=== PATIENT | female | born 1995 | race Caucasian/White ===

== ENCOUNTER → 2020-07-17 10:26 | Outpatient (CLI) | payer OTHER, SELFPAY ==
--- NOTE | 2020-07-17 10:30 | DI.US.S_ITS ---
PROCEDURE: US OB <= 14 WEEKS FETUS INDICATIONS: Early dating viability OUTSIDE/PRIOR DATING DATA: Last menstrual period (LMP): Unknown LMP-based estimated date of delivery (LIU): Not applicable. First dating scan (date and location): July 17, 2020. Estimated date of delivery (LIU) from first dating scan: March 10, 2021. TECHNIQUE: Real-time scanning was performed of the fetus and maternal pelvic organs, with image documentation. Endovaginal scanning was also performed to better visualize the fetus and maternal ovaries. COMPARISON: None. FINDINGS: Embryo: Single living intrauterine gestation with an estimated sonographic gestational age of approximately 6 weeks and 2 days based off crown-rump length measurement of approximately 0.5 cm. heart rate measures approximately 122 beats per minute. Normal yolk sac is visualized. No perigestational hemorrhage. Measurement variability in dating: +/- 4 weeks by LMP, +/- 7 days by mean sac diameter (use before 6 weeks gestation if crown-rump length not able to be measured), +/- 5 days by crown-rump length (up to 8 weeks 6 days gestation), +/- 7 days by crown-rump length (up to 13 weeks 6 days gestation). Maternal organs: Ovaries appear unremarkable bilaterally with resolving 1.7 cm left corpus luteal cyst. Maternal cervix measures 4.5 cm. It appears long and closed. IMPRESSION: Single living intrauterine gestation with an estimated sonographic gestational age of approximately 6 weeks and 2 days based off crown-rump length measurement of 0.5 cm. Recommend continued clinical surveillance and follow-up imaging with routine second-trimester anatomic screening survey. Dictated by: Shady Jackson M.D. on 07/20/2020 at 13:20 Approved by: Shady Jackson M.D. on 07/20/2020 at 13:23
== END ==
PROVIDERS: PCP Family Medicine; Referring Provider Family Medicine; Visit Provider Family Medicine
DX: Z34.01 Encounter for supervision of normal first pregnancy, first trimester (principal); Z3A.01 Less than 8 weeks gestation of pregnancy
CPT/HCPCS: 76817

== ENCOUNTER → 2020-07-21 14:01 | Outpatient (CLI) | payer OTHER, SELFPAY ==
[2020-07-21 15:37] LABS: HCG Quantitative /Beta subunit 47599 mIU/mL
== END ==
PROVIDERS: PCP Family Medicine; Referring Provider Family Medicine; Visit Provider Family Medicine
DX: Z34.90 Encounter for supervision of normal pregnancy, unspecified, unspecified trimester (principal)
CPT/HCPCS: 36415; 84702

== ENCOUNTER → 2020-07-24 08:35 | Outpatient (CLI) | payer OTHER, SELFPAY ==
[2020-07-24 11:25] LABS: HCG Quantitative /Beta subunit 66259 mIU/mL
== END ==
PROVIDERS: PCP Family Medicine; Referring Provider Family Medicine; Visit Provider Family Medicine
DX: Z34.90 Encounter for supervision of normal pregnancy, unspecified, unspecified trimester (principal)
CPT/HCPCS: 36415; 84702

== ENCOUNTER → 2020-08-09 14:43 | Outpatient (CLI) | payer OTHER, SELFPAY ==
--- NOTE | 2020-08-09 14:43 | DI.US.S_ITS ---
PROCEDURE: US OB <= 14 WEEKS FETUS INDICATIONS: 1 EPISODE BLEEDING OUTSIDE/PRIOR DATING DATA: Last menstrual period (LMP): Unknown LMP-based estimated date of delivery (LIU): Unknown. First dating scan (date and location): 07/17/20. Estimated date of delivery (LIU) from first dating scan: 03/10/21. TECHNIQUE: Real-time scanning was performed of the fetus and maternal pelvic organs, with image documentation. Endovaginal scanning was also performed to better visualize the fetus and maternal ovaries. COMPARISON: [facility], OB <= 14 WEEKS FETUS, 07/17/2020, 10:13. FINDINGS: Embryo: Single living intrauterine fetus is present with a heart rate measuring 153 beats per minute. [place]-rump length measures 3.2 cm, 10 weeks 1 day. There is 1.6 x 0.7 x 1.8 cm perigestational fluid collection, presumed hemorrhage. Measurement variability in dating: +/- 4 weeks by LMP, +/- 7 days by mean sac diameter (use before 6 weeks gestation if crown-rump length not able to be measured), +/- 5 days by crown-rump length (up to 8 weeks 6 days gestation), +/- 7 days by crown-rump length (up to 13 weeks 6 days gestation). Maternal organs: Ovaries are not well seen sonographically. . IMPRESSION: Single living intrauterine fetus. Perigestational hemorrhage. Dictated by: Al Zimmer M.D. on 08/09/2020 at 15:54 Approved by: Al Zimmer M.D. on 08/09/2020 at 15:56
== END ==
PROVIDERS: PCP Family Medicine; Referring Provider Family Medicine; Visit Provider Family Medicine
DX: Z34.01 Encounter for supervision of normal first pregnancy, first trimester (principal); Z3A.10 10 weeks gestation of pregnancy
CPT/HCPCS: 76801; 76817

== ENCOUNTER → 2020-08-18 10:17 | Outpatient (CLI) | payer OTHER, SELFPAY ==
[2020-08-18 10:57] LABS: Add Manual Diff / Slide Review NO; Basophils Absolute Auto 100 /uL (0-100); Basophils Percent Auto 0.9 % (0-2); Eosinophils Absolute Auto 200 /uL (0-450); Eosinophils Percent Auto 2.3 % (2-4); Hematocrit 37.4 % (36-46); Hemoglobin 12.7 g/dL (12.0-16.0); Lymphocytes Absolute Auto 2400 /uL (1100-4500); Lymphocytes Percent Auto 28.5 % (25-40); Mean Corpuscular HGB Conc 33.9 % (30-36); Mean Corpuscular Hemoglobin 29.6 PG (26-34); Mean Corpuscular Volume 87.2 fL (80-100); Monocytes Absolute Auto 600 /uL (0-900); Monocytes Percent Auto 6.6 % (3-14); Neutrophils Absolute Auto 5200 /uL (1500-7000); Neutrophils Percent Auto 61.7 % (50-75); Platelet Count 333 X10^3/uL (150-400); Red Blood Cell Count 4.29 X10^6/uL (4.0-5.2); Red Cell Distribution Width 13.8 % (11.6-14.8); White Blood Cell Count 8.5 X10^3/uL (4.5-11.0)
[2020-08-18 13:11] LABS: Appearance Urine UA CLEAR; Bilirubin Urine UA NEGATIVE (NEGATIVE); Color Urine UA YELLOW; Glucose Urine UA NEGATIVE (Negative); Ketones Urine UA TRACE (NEGATIVE); Leukocyte Esterase Urine UA TRACE (NEGATIVE); Nitrite Urine UA NEGATIVE (Negative); Occult Blood Urine UA TRACE-INTACT (Negative); Protein Urine UA NEGATIVE (Negative); Specific Gravity Urine UA 1.025 (1.000-1.035); Urobilinogen Urine UA 0.2 E.U./dL (0.2)
[2020-08-18 13:27] LABS: RBC Urine 0-1/HPF (0-5/HPF); Squamous Epithelial Cell Urine 5-10 /HPF (0-5/HPF); WBC Urine 0-1/HPF (0-5/HPF)
[2020-08-18 13:28] LABS: Bacteria Urine Few (2-10); Culture Indicated Urine Cult Not Indicated
[2020-08-18 16:15] LABS: Hepatitis B Surface Antigen NEGATIVE s/c (NEGATIVE); Rubella Antibody IgG 78.8 IU/mL (>15)
[2020-08-18 16:31] LABS: HIV 1 & 2 Ab/Ag 4th Gen Combo NEGATIVE (NEGATIVE); Hep C Virus Ab w/Reflex Quant NEGATIVE s/c (NEGATIVE)
[2020-08-19 07:52] LABS: RPR Screen Non Reactive (Non Reactive)
[2020-08-19 08:14] LABS: Varicella IgG Antibody >4000 index (Immune >165)
== END ==
PROVIDERS: PCP Family Medicine; Referring Provider Family Medicine; Visit Provider Family Medicine
DX: Z34.01 Encounter for supervision of normal first pregnancy, first trimester (principal)
CPT/HCPCS: 36415; 80055; 81003; 81015; 86787; 86803; 86850; 86900; 86901; 87086; 87389

== ENCOUNTER → 2020-10-02 16:34 | Outpatient (CLI) | payer OTHER, SELFPAY ==
[2020-10-04 20:07] LABS: AFP, Serum 48.7 ng/mL (.); Calc Gestational Age EDD (.); Estriol, Free 1.04 ng/mL (.); Inhibin A, Dimeric 84.99 pg/mL (.); Inhibin A, MoM 0.74 (.); Maternal Ethnicity Caucasian (.); Maternal Weight 254 lbs (.); Number of Fetuses No (.); OSBR Risk 1 IN 1995 (.); Results Report (.); Test Results *Screen Negative* (.); hCG, MoM 1.12 (.); hCG, Serum 25039 mIU/mL (.)
== END ==
PROVIDERS: PCP Family Medicine; Referring Provider Family Medicine; Visit Provider Family Medicine
DX: Z34.90 Encounter for supervision of normal pregnancy, unspecified, unspecified trimester (principal); Z3A.18 18 weeks gestation of pregnancy
CPT/HCPCS: 36415; 82105; 82677; 84702; 86336

== ENCOUNTER → 2020-10-23 09:17 | Outpatient (CLI) | payer OTHER, SELFPAY ==
--- NOTE | 2020-10-23 09:18 | DI.US.S_ITS ---
PROCEDURE: US OB >= 14 WEEKS FETUS INDICATIONS: ANATOMY OUTSIDE/PRIOR DATING DATA: First dating scan (date and location): 07/17/2020 . Estimated date of delivery (LIU) from first dating scan: 03/10/2021 . TECHNIQUE: Real-time scanning was performed of the fetus, with image documentation and biometric measurements. Endovaginal scanning: No COMPARISON: [facility], OB <= 14 WEEKS FETUS, 08/09/2020, 15:03. FINDINGS: General: A single living intrauterine gestation is present. Presentation: Vertex. Placenta: Placental position is posterior , without previa. Amniotic fluid index: 17.8 cm, normal range is 5-24 cm. heart rate: 157 beats per minute. Maternal cervical canal: 3.7 cm long. Normal lower limit is 2.5 cm. biometrics: Biparietal diameter: 21 weeks 4 days Head circumference: 21 weeks 1 day Abdominal circumference: 21 weeks 3 days Femur length: 22 weeks Estimated gestational age from initial scan: 20 weeks 2 days Composite gestational age from present scan: 21 weeks 4 days Estimated weight and percentile: 441 g; 98th percentile Measurement variability for biometric dating: +/- 7 days from 14 weeks to 15 weeks 6 days gestation, +/- 10 days from 16 weeks to 21 weeks 6 days gestation, +/- 2 weeks from 22 weeks to 27 weeks 6 days gestation, +/- 3 weeks for 28 weeks gestation or later. weight reference: 4500 g or EFW >90/95% is considered macrosomia or large for gestational age. EFW <10% is small for gestational age. EFW 5% or less is considered intra-uterine growth restriction. Anatomic survey: Neuro: Ventricles are non-dilated at less than 10 mm. Cisterna magna is normal at 3-11 mm. Cerebellum is normal in size and morphology. Nuchal skin fold: Normal at less than 6 mm between 14-21 weeks gestational age. Face: Nose and lips are normal. Facial profile not well seen. Spine: No evidence for spina bifida. Heart: Not well seen. Diaphragm: Diaphragm is intact. Stomach: Left-sided stomach is present. Kidneys: No hydronephrosis. Normal is less than 5 mm in 2nd trimester, less than 7 mm in 3rd trimester. Cord: 3-vessel cord has orthotopic insertion. Bladder: Normal in size. Extremities: All 4 extremities identified. IMPRESSION: Facial profile and heart not well visualized; otherwise normal anatomy. Follow-up recommended. Dictated by: Mike THOMASON Interpreted: Alfredo Landry MD on 10/23/2020 at 11:24 Transcribed by: SALBADOR on 10/23/2020 at 11:26 Approved by: Alfredo Landry M.D. on 10/23/2020 at 15:41
== END ==
PROVIDERS: PCP Family Medicine; Referring Provider Family Medicine; Visit Provider Family Medicine
DX: Z36.89 Encounter for other specified antenatal screening (principal); Z3A.21 21 weeks gestation of pregnancy
CPT/HCPCS: 76811

== ENCOUNTER → 2020-11-08 08:12 | Outpatient (CLI) | payer OTHER, SELFPAY ==
--- NOTE | 2020-11-08 08:13 | DI.US.S_ITS ---
PROCEDURE: US OB LIMITED INDICATIONS: HEART, PROFILE OUTSIDE/PRIOR DATING DATA: Last menstrual period (LMP): Unknown LMP-based estimated date of delivery (LIU): Not applicable . First dating scan (date and location): 07/17/2020 . Estimated date of delivery (LIU) from first dating scan: 03/10/2021 . TECHNIQUE: Real-time scanning was performed of the fetus, with image documentation. Endovaginal scanning: No COMPARISON: [facility], OB >= 14 WEEKS FETUS, 10/23/2020, 9:28. FINDINGS: A single living intrauterine gestation is present. Presentation: Transverse with head to maternal left Placenta: Placental position is posterior , without previa. heart rate: 153 beats per minute. Maternal cervical canal: 4.0 cm long. Normal lower limit is 2.5 cm. Estimated gestational age from initial scan: 22 weeks 4 day . profile is within normal limits. A 3 mm diameter left ventricular echogenic intracardiac focus is present. Outflow tracts are within normal limits. Four-chamber heart view is within normal limits. IMPRESSION: 1. Single living intrauterine gestation. 2. Left ventricular echogenic intracardiac focus. Otherwise negative evaluation of the heart and outflow tracts. 3. Normal profile. Dictated by: Chai Mendoza M.D. on 11/08/2020 at 10:25 Approved by: Chai Mendoza M.D. on 11/08/2020 at 10:27
== END ==
PROVIDERS: PCP Family Medicine; Referring Provider Family Medicine; Visit Provider Family Medicine
DX: Z36.89 Encounter for other specified antenatal screening (principal); Z3A.22 22 weeks gestation of pregnancy
CPT/HCPCS: 76815

== ENCOUNTER → 2020-11-28 08:44 | Outpatient (CLI) | payer OTHER, SELFPAY ==
[2020-11-28 10:37] LABS: Hematocrit 35.4 % (36-46); Hemoglobin 11.8 g/dL (12.0-16.0)
[2020-11-28 11:07] LABS: GTT (PREG) 1 Hour PP 50gm Dose 123 mg/dL (76-139)
== END ==
PROVIDERS: PCP Family Medicine; Referring Provider Family Medicine; Visit Provider Family Medicine
DX: Z34.90 Encounter for supervision of normal pregnancy, unspecified, unspecified trimester (principal); Z3A.25 25 weeks gestation of pregnancy
CPT/HCPCS: 36415; 82950; 85014; 85018

== ENCOUNTER → 2020-11-29 14:00 | Outpatient (CLI) | payer OTHER, SELFPAY ==
[2020-11-29 14:21] LABS: Appearance Urine UA CLEAR; Bilirubin Urine UA NEGATIVE (NEGATIVE); Color Urine UA YELLOW; Glucose Urine UA NEGATIVE (Negative); Ketones Urine UA NEGATIVE (NEGATIVE); Leukocyte Esterase Urine UA 1+ (NEGATIVE); Nitrite Urine UA NEGATIVE (Negative); Occult Blood Urine UA NEGATIVE (Negative); Protein Urine UA NEGATIVE (Negative); Specific Gravity Urine UA <=1.005 (1.000-1.035); Urobilinogen Urine UA 0.2 E.U./dL (0.2)
[2020-11-29 14:45] LABS: Bacteria Urine Few (2-10); Culture Indicated Urine Specimen Cultured; RBC Urine 1-5/HPF (0-5/HPF); Squamous Epithelial Cell Urine 1-5 /HPF (0-5/HPF); WBC Urine 1-5/HPF (0-5/HPF); pH Urine UA 6.5 (4.5-8.0)
== END ==
PROVIDERS: PCP Family Medicine; Referring Provider Family Medicine; Visit Provider Family Medicine
DX: R30.0 Dysuria (principal)
CPT/HCPCS: 81001; 87086

== ENCOUNTER → 2021-01-11 07:48 | Outpatient (CLI) | payer OTHER, SELFPAY ==
--- NOTE | 2021-01-11 07:49 | DI.US.S_ITS ---
PROCEDURE: US OB LIMITED INDICATIONS: SIZE GREATER THAN DATES OUTSIDE/PRIOR DATING DATA: First dating scan (date and location): 07/17/2020 . Estimated date of delivery (LIU) from first dating scan: 03/10/2021 . TECHNIQUE: Real-time scanning was performed of the fetus, with image documentation and biometric measurements. COMPARISON: [facility], OB LIMITED, 11/08/2020, 8:36. FINDINGS: General: A single living intrauterine gestation is present. Presentation: Vertex. Placenta: Placental position is right superior , without previa. Amniotic fluid index: 14.8 cm, normal range is 5-24 cm. heart rate: 180 beats per minute. Maternal cervical canal: 4.3 cm long. Normal lower limit is 2.5 cm. biometrics: Biparietal diameter: 8.2 centimeters. 33 weeks 0 days. Head circumference: 29.7 centimeters. 32 weeks 6 days. Abdominal circumference: 28.4 centimeters. 32 weeks 3 days. Femur length: 6.5 centimeters. 33 weeks 5 days. Estimated gestational age by initial ultrasound: 31 weeks 5 days. Composite gestational age today: 33 weeks 0 days. Estimated weight and percentile: 2076 grams. 77th percentile Measurement variability for biometric dating: +/- 7 days from 14 weeks to 15 weeks 6 days gestation, +/- 10 days from 16 weeks to 21 weeks 6 days gestation, +/- 2 weeks from 22 weeks to 27 weeks 6 days gestation, +/- 3 weeks for 28 weeks gestation or later. weight reference: 4500 g or EFW >90/95% is considered macrosomia or large for gestational age. EFW <10% is small for gestational age. EFW 5% or less is considered intra-uterine growth restriction. Other: Not applicable. IMPRESSION: 1. Size greater than dates as above. 2. Normal LINH 14.8 centimeters. 3. heart rate 180 beats per minute. Dictated by: Clem Morales M.D. on 01/11/2021 at 15:58 Approved by: Clem Morales M.D. on 01/11/2021 at 16:02
== END ==
PROVIDERS: PCP Family Medicine; Referring Provider Family Medicine; Visit Provider Family Medicine
DX: O36.63X0 Maternal care for excessive fetal growth, third trimester, not applicable or unspecified (principal); Z3A.33 33 weeks gestation of pregnancy
CPT/HCPCS: 76815

== ENCOUNTER 2021-01-11 17:40 | Outpatient (CLI) | payer OTHER, SELFPAY ==
--- NOTE | 2021-01-11 18:38 | P.TNLD_ITS ---
Visit Information Visit Information Date of evaluation: 01/11/21 Primary OB Provider: Tonya Lee Reason for Evaluation: Yes other Comments/Additional reasons for admission: heart rate of 180 on ultrasound today. Results not called to provider, just noted in report later in the date. Pt called and asked to come in. Denies complaints, leaking, bleeding or contractions and reports copious movement. Vital Signs Vital Signs: T 36.1 BP 127/74 P 95 PFSH Medical History No known health problems Surgical History [place] teeth extracted Family History Mother Family estrangement History of hysterectomy Bipolar 1 disorder Addiction Father COVID-19 Pneumonia Grandmother Family estrangement Grandfather Family estrangement Grandmother Old age Grandfather Diabetes mellitus Hypertension Myocardial infarction Sister Addiction Brother Addiction Family/Other Cancer Breast cancer Bone cancer Family/Other Myocardial infarction Diabetes mellitus Family/Other Primary Parkinson's disease Social History marital status: (Currently Deployed : back ? 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 Follow up as scheduled in [facility]. OB Disposition: home
== END 2021-01-11 18:52 | disposition home or self-care (01) ==
LOC: OB 01-15 09:19
PROVIDERS: PCP Family Medicine; Referring Provider Family Medicine; Visit Provider Family Medicine
DX: O36.63X0 Maternal care for excessive fetal growth, third trimester, not applicable or unspecified (principal); O36.8330 Maternal care for abnormalities of the fetal heart rate or rhythm, third trimester, not applicable or unspecified; Z3A.33 33 weeks gestation of pregnancy
CPT/HCPCS: 59025; 76815; G0378; G0379

== ENCOUNTER 2021-01-19 15:32 | Outpatient (CLI) | payer OTHER, SELFPAY ==
--- NOTE | 2021-01-19 16:08 | PM.OBTRLD ---
Visit Information Visit Information Date of evaluation: 01/19/21 Primary OB Provider: Tonya Lee Reason for Evaluation: Yes non-stress test non-stress test reason: other ( tachycardia) Comments/Additional reasons for admission: Patient was sent to the center from the clinic due to tachycardia with Doppler. She has a very active baby and denies any complaints whatsoever. Vital Signs Vital Signs: Temperature 36.1? blood pressure 121/77 heart rate 93 PFSH Medical History No known health problems Surgical History [place] teeth extracted Family History Mother Family estrangement History of hysterectomy Bipolar 1 disorder Addiction Father COVID-19 Pneumonia Grandmother Family estrangement Grandfather Family estrangement Grandmother Old age Grandfather Diabetes mellitus Hypertension Myocardial infarction Sister Addiction Brother Addiction Family/Other Cancer Breast cancer Bone cancer Family/Other Myocardial infarction Diabetes mellitus Family/Other Primary Parkinson's disease Social History marital status: (Currently Deployed : back ? 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) current occupational exposures/hazards: No ([employer]brid Work [employer]enario ) special elyssa needs: No Smoking Status: Never smoker second hand exposure: No (A lot as a child - her father was a heavy smoker (up until age 10)) alcohol intake: former (pre- : rare use ) substance use type: does not use Evaluation Evaluation Baseline heart rate: 150 Variability: Moderate (11-25) monitor accelerations: Present Monitor Decelerations: Absent Category of Tracing: Reactive Diagnosis, Plan/Disposition Final Diagnosis (1) 32 weeks gestation of : Status: Acute Plan/Disposition Plan: Reactive NST with normal baseline. Follow-up as scheduled clinic. OB Disposition: home
== END 2021-01-19 16:25 | disposition home or self-care (01) ==
LOC: LABOR 16:07 → OB 01-23 01:31
PROVIDERS: PCP Family Medicine; Referring Provider Family Medicine; Visit Provider Family Medicine
DX: O36.8330 Maternal care for abnormalities of the fetal heart rate or rhythm, third trimester, not applicable or unspecified (principal); Z3A.32 32 weeks gestation of pregnancy
CPT/HCPCS: 59025; G0378; G0379

== ENCOUNTER → 2021-02-13 16:50 | Outpatient (CLI) | payer OTHER, SELFPAY ==
[2021-02-14 18:42] LABS: Strep Grp B PCR NEG for Grp B Strep
== END ==
PROVIDERS: PCP Family Medicine; Referring Provider Family Medicine; Visit Provider Family Medicine
DX: Z34.83 Encounter for supervision of other normal pregnancy, third trimester (principal); Z3A.36 36 weeks gestation of pregnancy
CPT/HCPCS: 87653

== ENCOUNTER 2021-02-19 14:31 | Outpatient (CLI) | payer OTHER, SELFPAY ==
--- NOTE | 2021-02-19 15:27 | P.TNLD_ITS ---
Visit Information Visit Information Date of evaluation: 02/19/21 Primary OB Provider: Tonya Lee Reason for Evaluation: Yes rupture of membranes Comments/Additional reasons for admission: Patient comes in with concern for leaking and possible rupture membranes. She lost her mucus plug today and has contractions though not painful or regular yet. Reports good movement and denies bleeding. Vital Signs Vital Signs: Blood pressure 127/76 heart rate 110 PFSH Medical History No known health problems Surgical History [place] teeth extracted Family History Mother Family estrangement History of hysterectomy Bipolar 1 disorder Addiction Father COVID-19 Pneumonia Grandmother Family estrangement Grandfather Family estrangement Grandmother Old age Grandfather Diabetes mellitus Hypertension Myocardial infarction Sister Addiction Brother Addiction Family/Other Cancer Breast cancer Bone cancer Family/Other Myocardial infarction Diabetes mellitus Family/Other Primary Parkinson's disease Social History marital status: (Currently Deployed : back ? 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 ) special elyssa needs: No Smoking Status: Never smoker second hand exposure: No (A lot as a child - her father was a heavy smoker (up until age 10)) alcohol intake: former (pre- : rare use ) substance use type: does not use Evaluation Evaluation Baseline heart rate: 135 Variability: Moderate (11-25) monitor accelerations: Present Monitor Decelerations: Absent Uterine Contraction Intensity: Mild Category of Tracing: Reactive Non-invasive Membranes Rupture Test: negative Diagnosis, Plan/Disposition Final Diagnosis (1) 37 weeks gestation of : Status: Acute Plan/Disposition Plan: 25-year-old at 37 weeks and 2 days with possible rupture membranes. AmniSure negative. NST reactive. Follow-up in clinic as scheduled later this week. OB Disposition: home
== END 2021-02-19 16:00 | disposition home or self-care (01) ==
LOC: LABOR 15:21 → OB 02-21 07:28
PROVIDERS: PCP Family Medicine; Referring Provider Family Medicine; Visit Provider Family Medicine
DX: Z03.71 Encounter for suspected problem with amniotic cavity and membrane ruled out (principal); Z3A.37 37 weeks gestation of pregnancy
CPT/HCPCS: 59025; 84112; G0378; G0379

== ENCOUNTER 2021-02-24 21:55 | Outpatient (CLI) | payer OTHER, SELFPAY | END 2021-02-24 22:48 | disposition home or self-care (01) | LOC: LABOR 21:58 → OB 02-26 11:16 | PROVIDERS: PCP Family Medicine; Referring Provider Family Medicine; Visit Provider Family Medicine | DX: Z03.71 Encounter for suspected problem with amniotic cavity and membrane ruled out (principal); O47.1 False labor at or after 37 completed weeks of gestation; Z3A.38 38 weeks gestation of pregnancy | CPT/HCPCS: 59025; 84112; G0378; G0379 ==

== ENCOUNTER 2021-02-25 08:26 | Inpatient (IN) | payer OTHER, SELFPAY ==
[2021-02-25 11:45] LABS: COVID19 -Nasal RAPID Negative (Negative)
--- NOTE | 2021-02-25 12:51 | PM.OBHP.IH.1 ---
OB HPI Date/Time Date of admission: 02/25/21 Date Patient Seen: 02/25/21 Time Patient Seen: 12:30 History of Present Condition Chief complaint: LIU Calculator Estimated Delivery Date Method Current WG Current Estimate 03/10/21 Ultrasound #1 38w 1d Other Estimates 03/06/21 Ultrasound #2 38w 5d : 1 Para: 0 Narrative: 25-year-old at 38 weeks gestation by early ultrasound. Patient reports at approximately 3:00 a.m. she had a gush of clear fluid and contractions increased in intensity after that. Baby has been active and she has otherwise been feeling well. On admission to the center AmniSure was positive and she was 4-5 cm dilated. has been uncomplicated. Estimated weight at 20 weeks was 98 percentile and there was an echogenic intracardiac focus. Quad screen normal which was reassuring and no further workup indicated given lack of other findings. Follow-up ultrasound was significant for estimated weight at the seventy-seventh percentile. No gestational diabetes. care: good care, initiated at week # (10), number of visits (10) and pounds weight gain (41) Dating criteria OB: based on 1st trimester US only Ultrasounds: normal mid trimester US Obstetrical complications: none Medical complications OB: none Preadmission Labs Last OB Lab Results: Blood Type O Positive 08/18/20 10:08/18/20 Antibody Screen Negative 08/18/20 10:21 08/18/20 Hematocrit 35.4 % (36-46) L 11/28/20 08:55 11/28/20 Hemoglobin 11.8 g/dL (12.0-16.0) L 11/28/20 08:55 11/28/20 Hepatitis B Surface Antigen Negative s/c (NEGATIVE) 08/18/20 10:21 08/18/20 Hepatitis C Antibody Negative s/c (NEGATIVE) 08/18/20 10:21 08/18/20 Rubella Antibody 78.8 IU/mL (>15) 08/18/20 10:21 08/18/20 Varicella-Zoster IgG Antibody >4000 index (Immune >165) 08/18/20 10:21 08/18/20 Glucose 1 Hour 123 mg/dL (76-139) 11/28/20 08:55 11/28/20 Group B Streptococcus (PCR) Neg for grp b strep 02/13/21 16:50 02/13/21 -: Chlamydia screen: negative, Gonorrhea screen: negative and Urine: negative -: PAP smear: Normal External Labs -: Urine: negative Evaluation Evaluation Baseline heart rate: 130 Variability: Moderate (11-25) monitor accelerations: Present Monitor Decelerations: Absent Contraction Frequency (minutes): 5 Status: Category l Dilation (cm): 7 Effacement (%): 100 station: -1 Non-invasive Membranes Rupture Test: positive [facility] Medical History No known health problems Surgical History [place] teeth extracted Family History Mother Family estrangement History of hysterectomy Bipolar 1 disorder Addiction Father COVID-19 Pneumonia Grandmother Family estrangement Grandfather Family estrangement Grandmother Old age Grandfather Diabetes mellitus Hypertension Myocardial infarction Sister Addiction Brother Addiction Family/Other Cancer Breast cancer Bone cancer Family/Other Myocardial infarction Diabetes mellitus Family/Other Primary Parkinson's disease Social History marital status: (Currently Deployed : back ? 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 ) special elyssa needs: No Smoking Status: Never smoker second hand exposure: No (A lot as a child - her father was a heavy smoker (up until age 10)) alcohol intake: former (pre- : rare use ) substance use type: does not use Meds Home Medications and Allergies Home Medications Medication Instructions Recorded Confirmed Type omega-3 fatty acids 100 mg PO tab 07/31/20 02/23/21 History chewable tablet prenat.vits,edwin,iat-sond-wpjjp 1 tab PO DAILY 07/31/20 02/25/21 History pyridoxine (vitamin B6) 100 mg 50 mg PO DAILY 05/10/21 12/05/21 History tablet Allergies Allergy/AdvReac Type Severity Reaction Status Date / Time No Known Drug Allergies Allergy Verified 08/18/20 09:32 OB Exam Narrative Exam Narrative: Temperature 36.4? blood pressure 119/77 heart rate 95 HENMT Head: normal to inspection Mouth: oral mucosae normal Eyes General: appearance normal, both eyes and all related structures Resp Effort & Inspection: normal respiratory effort Auscultation: clear to auscultation bilaterally Extremities Lower extremity: Yes normal to inspection; No edema External Female Exam: Yes normal external appearance Presentation: vertex Estimated Weight (lbs): 8 Amniotic Fluid: clear Objective Labs Result Diagrams: 02/25/21 12:20 Labs: Laboratory Results - last 24 hr 02/25/21 10:00 SARS-CoV-2 (PCR) Negative Assessment and Plan Assessment and Plan Assessment and Plan narrative: 25-year-old at 38 weeks and 1 day in active labor. AmniSure was positive on admission. On last exam she did have a bulging bag of water. She is requesting nitrous oxide now. EFM category 1. Will consider AROM in the next couple of hours after she is more comfortable with nitrous oxide. Anticipate spontaneous vaginal delivery.
[2021-02-25 12:52] LABS: Add Manual Diff / Slide Review NO; Basophils Absolute Auto 100 /uL (0-100); Basophils Percent Auto 0.7 % (0-2); Eosinophils Absolute Auto 100 /uL (0-450); Eosinophils Percent Auto 0.7 % (2-4); Hematocrit 36.9 % (36-46); Hemoglobin 12.3 g/dL (12.0-16.0); Lymphocytes Absolute Auto 2200 /uL (1100-4500); Lymphocytes Percent Auto 18.7 % (25-40); Mean Corpuscular HGB Conc 33.4 % (30-36); Mean Corpuscular Volume 84.1 fL (80-100); Monocytes Absolute Auto 500 /uL (0-900); Monocytes Percent Auto 3.9 % (3-14); Neutrophils Absolute Auto 9000 /uL (1500-7000); Platelet Count 370 X10^3/uL (150-400); Red Blood Cell Count 4.39 X10^6/uL (4.0-5.2); Red Cell Distribution Width 14.4 % (11.6-14.8); White Blood Cell Count 11.8 X10^3/uL (4.5-11.0)
--- NOTE | 2021-02-25 14:34 | PM.OBPNLAB ---
Date/Time Date Patient Seen: 02/25/21 Time Patient Seen: 14:34 Pain Control Pain control: tolerating well and epidural Pelvic Exam Dilation (cm): 9 Effacement (%): 100 station: -1 Amniotic membrane status: Ruptured (clear fluid) Contractions Monitor mode: External Contraction frequency (min): 4 Status status: Category l Heart Rate Baseline: 130 Monitor Accelerations: Present Monitor Decelerations: Absent and Early Monitor Variability: Moderate Assessment and Plan Assessment: active labor Plan: continuous present management Comments: Patient now comfortable with epidural and progressing well spontaneously. Artificial rupture membranes with clear fluid. Anticipate .
[2021-02-25] MEDS: ONDANSETRON 4 MG/2 ML INJ IV (15:15)
--- NOTE | 2021-02-25 18:02 | PM.OBPRVD ---
Labor & Delivery Delivery date: 02/25/21 Delivery augmentation: rupture of membranes Delivery monitor: external FHT Route of delivery: L&D Laceration Description: Perineal - 2nd Degree Delivery repair: chromic Estimated blood loss (mL): 150 Anesthesia Type: Epidural Narrative: Patient is a 25-year-old at 38 weeks and 1 day gestation who gave on 02/25/21 at 5:38 p.m.. LIU: 03/20/21 Hospital problems: 38 weeks of STAGE I: Labor Patient presented after spontaneous rupture of membranes at home at 3:00 a.m. with clear fluid. Painful contractions began shortly thereafter. She labored well naturally then went on to receive an epidural with adequate pain control. A forebag was ruptured with production of clear fluid. She was complete at 4:00 p.m.. heart tones were category 1 throughout stage I. STAGE II: Delivery Patient was complete and pushed for 1 hour and 28 minutes. She went on to deliver a vigorous male infant at 5:38 p.m. was vertex and OCTAVIA. He was immediately placed on mother's abdomen. Cord was clamped and cut after approximately 1 minute delay. Apgars were 9 and 9. No resuscitation of the required. STAGE III: Placenta/Cord Placenta delivered at 5:43 p.m. after active management and appeared intact with a three-vessel cord. Pitocin bolus given after delivery of placenta. Fundus was firm below umbilicus. A second-degree perineal laceration was repaired with 3-0 chromic in the usual fashion with good hemostasis. EBL: 150 mL. Needle and sponge counts were correct. The vagina was inspected and no items were left in situ. Patient was doing well with Baldev, her and at bedside. [place] Baby 1: Infant gender: Male Presentation: vertex Position: Left Occiput Anterior Placenta delivery description: Spontaneous Cord Vessel Description: 3 Vessels score (1 min): 9 score (5 min): 9 Plan for aftercare: Routine care
[2021-02-25] MEDS: OXYTOCIN PREMIX 30 UNIT/500 ML PLAST..BAG 200 UNIT IV (19:00)
[2021-02-25] MEDS: DERMOPLAST SPRAY 20% 60 ML 1 SPRAY TOP (19:27)
[2021-02-25] MEDS: LANOLIN OINT 7 GM 1 APPLIC TOP (19:28)
[2021-02-25] MEDS: ACETAMINOPHEN 325 MG TABLET 650 MG PO (19:29)
[2021-02-25] MEDS: IBUPROFEN 600 MG TABLET PO (19:29)
[2021-02-26] MEDS: ACETAMINOPHEN 325 MG TABLET 650 MG PO ×2 (02:47→11:32)
[2021-02-26] MEDS: IBUPROFEN 600 MG TABLET PO ×2 (02:48→11:32)
--- NOTE | 2021-02-26 09:28 | P.DS_ITS ---
Discharge Providers Provider Date of admission: 02/25/21 08:26 Discharge Date: 02/26/21 Primary care physician: Tonya Lee DO Consults: 02/26/21 18:09 Consult to [employer] Routine Comment: Discharge provider: Tonya Lee DO Summary Hospital Course Date Patient Seen: 02/26/21 Time Patient Seen: 07:45 Diagnoses: 38 weeks of Spontaneous vaginal Hospital Course: 25-year-old G1 now P1 after spontaneous vaginal delivery at 38 weeks and 1 day gestation on 02/25/21. Patient presented in labor after spontaneous rupture of membranes at home. She went on to receive an epidural and deliver a vigorous male . A second-degree perineal laceration was repaired in the usual fashion without complications. Breast-feeding initiated after delivery. course has been uncomplicated. She is ambulating, eating and voiding. Vaginal bleeding is moderate with passage of a few small clots but not excessive. Pain controlled with ibuprofen and Tylenol. will see them prior to discharge. Advised patient to call for fevers, severe pain or bleeding through more than a pad an hour. Follow-up for 6 week visit. We will see her in clinic in a couple days as well should she have concerns. Peripartum Data Infant Delivery Method: Natural Vaginal Laceration Description: Perineal - 2nd Degree complications: none 1: Gender: Male Disposition of : home Status at Discharge Cognitive/behavioral status at discharge: at baseline, oriented Functional status at discharge: independent ambulation Overall status at discharge: patient is progressing back to baseline Time Spent with Patient Time attestation: Total time spent providing and/or coordinating discharge services: Time spent: Less than 30 minutes Objective Labs Result Diagrams: 02/25/21 12:20 Labs: Laboratory Results - last 24 hr 02/25/21 02/25/21 02/25/21 10:00 12:20 12:20 WBC 11.8 H RBC 4.39 Hgb 12.3 Hct 36.9 MCV 84.1 MCH 28.0 MCHC 33.4 RDW 14.4 Plt Count 370 Neut % (Auto) 76.0 H Lymph % (Auto) 18.7 L Greene % (Auto) 3.9 Eos % (Auto) 0.7 L Baso % (Auto) 0.7 Neut # (Auto) 9000 H Lymph # (Auto) 2200 Greene # (Auto) 500 Eos # (Auto) 100 Baso # (Auto) 100 SARS-CoV-2 (PCR) Negative Blood Type O Positive Antibody Screen Negative Exam Vital Signs (past 8 hours): Temperature 97.6? blood pressure 122/75 heart rate 91 respirations 17 Narrative Exam Narrative: General: Awake and alert, no acute distress. HEENT: NCAT, EOMI, moist oral mucosa CV: Regular rate and rhythm, no murmurs, rubs or gallops Lungs: CTAB, no wheezes, rales, or rhonchi Abdomen: Soft, nontender; bowel tones active; uterus firm 1 cm below umbilicus Extremities: Warm, trace edema Discharge Plan Discharge Plan Patient Disposition: Home Discharge orders & Medications Prescriptions: New docusate sodium 100 mg Capsule 100 mg PO DAILY Qty: 30 0RF ibuprofen 600 mg Tablet 600 mg PO Q6HR PRN (Reason: Pain, Mild (1-3)) Qty: 30 0RF Continued prenat.vits,edwin,[id number] Tablet 1 tab PO DAILY 0RF pyridoxine (vitamin B6) 100 mg tablet 50 mg PO DAILY 0RF omega-3 fatty acids 100 mg tablet,chewable PO 0RF Follow up/Referrals: Tonya Lee DO [Primary Care Provider] - 6 Weeks (Will schedule 6 week visit at babys appointment on 03/01/21 Appointment with on March 05 @ 1:00.) Diet/Activity/Treatments Diet: Diet as Tolerated Skin/Wound/Dressing Care Report to your healthcare provider any signs of infection, such as:: chills, fever, night sweats, increased pain, unusual drainage and unusual redness Visit Report/Discharge Packet Stand Alone Forms: Discharge: Care Visit Report Forms: Patient Portal/API, Stroke Signs & Symptoms Discharge Data Primary Care Provider: Tonya Lee
[2021-02-26] MEDS: PRENATAL VIT,CALC/IRON/FOLIC 1 TABLET 1 TAB PO (09:30)
[2021-02-26] MEDS: DOCUSATE 100 MG CAPSULE PO (09:30)
[2021-02-26 15:14] VITALS: BP 111/73; PULSE 92; RESP 24; TEMP 36.4
== END 2021-02-26 16:24 | disposition home or self-care (01) | DRG 807 ==
PROVIDERS: Admitting Provider Family Medicine; PCP Family Medicine; Referring Provider Family Medicine; Visit Provider Family Medicine
DX: O60.14X0 Preterm labor third trimester with preterm delivery third trimester, not applicable or unspecified (principal); Z37.0 Single live birth; O70.1 Second degree perineal laceration during delivery; Z20.822 Contact with and (suspected) exposure to COVID-19; Z3A.38 38 weeks gestation of pregnancy
CPT/HCPCS: 01967; 59025; 59050; 59400; 84112; 85025; 86850; 86900; 86901; 87635; C9803; G0379; J2405; J2590